=== PATIENT | male | born 1925 | race Caucasian/White ===

== ENCOUNTER 2016-11-07 21:32 | Emergency (ER) | payer MEDICARE ==
--- NOTE | 2016-11-07 23:30 | ED ---
Melonie Caceres Emily, scribed for Ottoniel Tamayo MD on 11/07/16 at 2218 . Adult Trauma - HPI Summary HPI Summary: This patient is an 89 year old M BIBA to [facility] s/p fall (slipping out of bed) earlier today. The patient rates the pain 3/10 in severity. Symptoms aggravated by nothing. Symptoms alleviated by nothing. Patient reports sore RLE (in knee). Patient denies hip pain, CP, abd pain, head pain, and neck pain. - History of Current Complaint Chief Complaint: EDHipPelvisInjury Stated Complaint: FALL/RT HIP PAIN Time Seen by Provider: 11/07/16 21:55 Hx Obtained From: Patient Mechanism of Injury: Fall - Slipping out of bed Ambulatory at the Scene: No Onset/Duration: Started Hours Ago, Still Present Onset of Pain: Prior to Arrival Onset Severity: Moderate Current Severity: Moderate Pain Intensity: 3 Pain Scale Used: 0-10 Numeric Location: Extremities - RLE in knee Aggravating Factor(s): Nothing Alleviating Factor(s): Nothing Associated Signs & Symptoms: Positive: Other: - sore RLE (in knee). Patient denies hip pain, CP, abd pain, head pain, and neck pain.. Negative: Chest Pain , Abdominal Pain - Additional Pertinent History Primary Care Physician: [id number] - Allergy/Home Medications Allergies/Adverse Reactions: Allergies Allergy/AdvReac Type Severity Reaction Status Date / Time Codeine Allergy Mild See Comment Verified 07/20/15 08:58 CI Pigment Blue 63 Allergy Unknown Unknown Verified 07/20/15 08:58 [From Cymbalta] Reaction Details Duloxetine [From Cymbalta] Allergy Unknown Unknown Verified 07/20/15 08:58 Reaction Details Sulfa Drugs Allergy Unknown Unknown Verified 07/20/15 08:58 Reaction Details Tramadol Allergy Unknown Unknown Verified 07/20/15 08:58 Reaction Details Cefazolin Allergy Rash Verified 07/20/15 08:58 PMH/Surg Hx/FS Hx/Imm Hx Previously Healthy: No Endocrine/Hematology History: Reports: Hx Diabetes Cardiovascular History: Reports: Hx Coronary Artery Disease, Hx Hypercholesterolemia, Hx Hypertension, Hx Pacemaker/ICD, Hx Valvular Heart Disease, Other Cardiovascular Problems/Disorders - branden cardia pacer, aortic valve replace Denies: Hx Aneurysm, Hx Angina, Hx Angioplasty, Hx Auto Implanted Cardiovert Defib, Hx Cardiac Arrest, Hx Cardiomegaly, Hx Congenital Heart Disease, Hx Congestive Heart Failure, Hx Deep Vein Thrombosis, Hx Embolism, Hx Hypotension History: Reports: Hx Benign Prostatic Hyperplasia - turp Denies: Hx Renal Disease Musculoskeletal History: Reports: Hx Arthritis - rheumatoid, Hx Rheumatoid Arthritis, Hx Gout Sensory History: Denies: Hx Cataracts, Hx Contacts or Glasses, Hx Eye Injury, Hx Eye Prosthesis, Hx Glaucoma, Hx Legally Blind, Hx Macular Degeneration, Hx Vision Problem, Hx Deafness, Hx Hearing Aid, Hx Hearing Problem, Other Sensory Impairments Opthamlomology History: Denies: Hx Cataracts, Hx Contacts or Glasses, Hx Eye Injury, Hx Eye Prosthesis, Hx Glaucoma, Hx Legally Blind, Hx Macular Degeneration, Hx Vision Problem, Other Sensory Impairments Neurological History: Reports: Hx Dementia Denies: Hx Developmental Delay, Hx Headaches, Hx Migraine, Hx Nerve Disease, Hx Seizures, Hx Spinal Cord Injury, Hx Transient Ischemic Attacks (TIA), Other Neuro Impairments/Disorders Psychiatric History: Reports: Hx of Violent Episodes Against Others, Other Psychiatric Issues/Disorders - alzheimers-like dementia - Surgical History Surgery Procedure, Year, and Place: bovine aortic valve replacement 2008, TURP Infectious Disease History: Unable to Obtain/Confirm Infectious Disease History: Denies: Traveled Outside the [place] in Last 30 Days - Family History Known Family History: Positive: Other - Social History Alcohol Use: Rare Substance Use Type: Reports: None Smoking Status (MU): Former Smoker Type: Cigarettes Have You Smoked in the Last Year: No Review of Systems Negative: Chest Pain Negative: Abdominal Pain Positive: Other - Fall, sore RLE at knee. Negative hip pain, neck pain, and head pain. All Other Systems Reviewed And Are Negative: Yes Physical Exam Triage Information Reviewed: Yes Vital Signs On Initial Exam: Initial Vitals Pulse Pulse Ox 69 93 11/07/16 21:40 11/07/16 21:40 Vital Signs Reviewed: Yes Appearance: Positive: Well-Appearing, No Pain Distress Skin: Positive: Warm, Skin Color Reflects Adequate Perfusion, Dry Head/Face: Positive: Normal Head/Face Inspection Eyes: Positive: EOMI, MAHI ENT: Positive: Normal ENT inspection Neck: Positive: Supple, Nontender Respiratory/Lung Sounds: Positive: Clear to Auscultation, Breath Sounds Present Cardiovascular: Positive: Murmur Abdomen Description: Positive: Nontender, Soft Bowel Sounds: Positive: Present Musculoskeletal: Positive: Other - Mildly tender at left mid femur. Complains of pain upon raising right leg. Able to raise RLE. No obvious signs of injury in arms. Left leg nml Neurological: Positive: Normal, Sensory/Motor Intact, Alert, Oriented to Person Place, Time Psychiatric: Positive: Affect/Mood Appropriate Diagnostics - Vital Signs Vital Signs Temp Pulse Resp BP Pulse Ox 11/07/16 21:47 96.5 F 61 16 104/57 94 11/07/16 21:42 64 14 104/57 93 11/07/16 21:41 66 93 11/07/16 21:40 69 93 - Laboratory Lab Statement: Any lab studies that have been ordered have been reviewed, and results considered in the medical decision making process. - Radiology Femur XR Radiology Interpretation Completed By: ED Physician - No fracture - CT Pelvis CT Interpretation Completed By: Radiologist - Reveals the pelvis small and large bowel are notable for prominence of stool. The appendix is normal. The urinary bladder is partially collapsed by Piña catheter. The prostate gland is normal. No pelvic free fluid is identified. There is no significant pelvic lymphadenopathy. There is no fracture or soft tissue hematoma. ED physician has reviewed this radiology report and agrees. Adult Trauma Course/Dx - Course Course Of Treatment: NO FXR SEEN ON PELVIS AND RT FEMUR X-RAYS. - Diagnoses Provider Diagnoses: Contusion of right hip Discharge - Discharge Plan Condition: Stable Disposition: HOME Patient Education Materials: Hip Contusion (ED) Referrals: Danielito Umana MD [Primary Care Provider] - Additional Instructions: FOLLOW UP WITH YOUR DOCTOR. NO FRACTURE OF YOUR PELVIS AND RIGHT HIP/FEMUR WAS SEEN. RETURN TO THE EMERGENCY DEPARTMENT FOR ANY WORSENING OF YOUR CONDITION OR QUESTIONS OR CONCERNS. The documentation as recorded by the Melonie shetty Emily accurately reflects the service I personally performed and the decisions made by me, Ottoniel Tamayo MD.
[2016-11-08 00:39] VITALS: BP 147/130
--- NOTE | 2016-11-08 11:50 | RAD ---
Indication: Pain at the RIGHT hip post fall. Comparison: November 07, 2016 radiographs and December 11, 2014 CT. Technique: Multidetector CT pelvis without contrast. Multiplanar reformation with bone algorithm. Report: Negative for pelvic or proximal femur fracture. Bone density is decreased throughout. Negative for soft tissue hematoma. Polyarticular degenerative arthropathy with moderately severe superior joint space narrowing at both hips. Catheterized largely decompressed urinary bladder. Moderate rectal distention with stool. Colonic diverticulosis. Negative for free pelvic fluid. IMPRESSION: No CT evidence for pelvis or proximal femur fracture.
--- NOTE | 2016-11-08 14:50 | RAD ---
Indication: RIGHT hip and thigh pain post fall. Comparison: CT pelvis of the same date. Technique: AP and lateral views of the RIGHT femur. REPORT AND IMPRESSION: No RIGHT femur fracture evident. Normal articular alignment. Small suprapatellar joint effusion at the knee. Peripheral vascular calcifications. Distal soft tissue edema greatest medially.
== END 2016-11-08 00:39 | disposition home or self-care (01) ==
LOC: ED 21:32
DX: S70.01XA Contusion of right hip, initial encounter (principal); W19.XXXA Unspecified fall, initial encounter; Y93.9 Activity, unspecified; Y92.9 Unspecified place or not applicable
CPT/HCPCS: 72192; 99282